=== PATIENT | female | born 1980 | race Caucasian/White ===

== ENCOUNTER 2024-12-12 21:04 | Emergency (ER) | payer MEDICAID ==
[~2024-12-12] VITALS: Ht 149.9 cm; Wt 72.0 kg
[~2024-12-12 21:04] MED LIST: AMLO5TAB88 PO; FERR325T6 MT; LOSA25TA26 PO
[2024-12-12 21:44] VITALS: TEMP 37; O2SAT 100
[2024-12-12 22:44] LABS: BASOPHILS % 1.1 % (0.0-2.0); EOSINOPHILS % 1.7 % (0.0-5.0); HEMATOCRIT. 39.9 % (36.0-48.0); HEMOGLOBIN. 12.8 g/dL (12.0-16.0); LYMPHOCYTES % 26.3 % (20.0-50.0); MEAN PLATELET VOLUME 9.2 fl (7.4-10.4); MONOCYTES % 6.9 % (2.0-8.0); NEUTROPHILS % 64.0 % (40.0-76.0); PLATELET 331 x1000/uL (130-400); RED BLOOD CELL COUNT 5.88 mill/uL (4.2-5.4); RED CELL DISTRIBUTION WIDTH 21.4 % (11.6-14.6)
[2024-12-12] MEDS: ONDANSETRON HCL 4MG/2ML INJ IV ONE (22:46)
[2024-12-12] MEDS: LABETALOL 5MG/ML 4ML INJ IV ONE (22:46)
[2024-12-12] MEDS: METOCLOPRAMIDE HCL 10MG/2ML VIAL IV ONE (22:46)
[2024-12-12 22:57] LABS: CREATININE 0.5 mg/dL (0.6-1.0); UREA NITROGEN BLOOD 10 mg/dL (9-23)
[2024-12-12 22:59] LABS: ASPARTATE AMINOTRANSFERASE 21 IU/L (<34); BILIRUBIN DIRECT < 0.1 mg/dL (<=3.0); BILIRUBIN TOTAL 0.4 mg/dL (0.1-1.0); PROTEIN TOTAL 7.9 g/dL (6.0-8.3)
[2024-12-12 23:04] LABS: HCG SCREEN NEGATIVE
[2024-12-12 23:12] LABS: CLARITY URINE CLEAR (CLEAR); COLOR URINE YELLOW (YELLOW); GLUCOSE URINE NEGATIVE (NEGATIVE); KETONES URINE NEGATIVE (NEGATIVE); LEUKOCYTE ESTERASE URINE NEGATIVE (NEGATIVE); NITRITE URINE NEGATIVE (NEGATIVE); OCCULT BLOOD URINE NEGATIVE (NEGATIVE); PH URINE 7.0 (4.5-8.0); PROTEIN URINE NEGATIVE (NEGATIVE); SPECIFIC GRAVITY URINE 1.011 (1.005-1.030); UROBILINOGEN URINE 0.2 E.U./dL (0.2-1.0)
[2024-12-12 23:13] LABS: ADD RBC MORPHOLOGY YES
[2024-12-12 23:14] LABS: PLATELET ESTIMATE NORMAL
[2024-12-12] MEDS: POTASSIUM CHLORIDE 20MEQ TABLET SR PO ONE (23:37)
[2024-12-12] MEDS: MORPHINE SULFATE 4 MG/ML INJ (FOR IV/IM USE) IV ONE (23:38)
[2024-12-13] MEDS: IOHEXOL-350 100 ML BOTTLE ONE (02:04)
[2024-12-13] MEDS ORDERED: IBUP-2029 MT (02:48)
[2024-12-13 02:53] VITALS: BP 149/73; PULSE 61; RESP 13; O2SAT 97
== END 2024-12-13 03:08 | disposition home or self-care (01) ==
LOC: ER 21:04 → CMPBEDREQ 12-13 07:18
DX: R51.9 Headache, unspecified (principal); R11.2 Nausea with vomiting, unspecified; M54.2 Cervicalgia; I10 Essential (primary) hypertension; F10.90 Alcohol use, unspecified, uncomplicated; Z79.899 Other long term (current) drug therapy; Z88.5 Allergy status to narcotic agent; Z90.710 Acquired absence of both cervix and uterus; Y90.9 Presence of alcohol in blood, level not specified
CPT/HCPCS: 99285; 96374; 96375; 80076; 80048; 81003; 84703; 83690; 85025; 36415; 93005; 70496; 70498; 70450; J3490; J2765; J2405; J2270; Q9967